=== PATIENT | male | born 1950 ===

== ENCOUNTER 2018-11-28 09:00 | Outpatient (CLI) | payer OTHER ==
[~2018-11-28 09:00] MED LIST: CORGARD40 MG; DIOVAN40 MG; LYRICA50 MG PO; VASOTEC20 M1
== END 2018-11-28 09:15 | disposition home or self-care (01) ==
LOC: SONOGRAMA 09:00
DX: M75.41 Impingement syndrome of right shoulder (principal)

== ENCOUNTER 2022-10-12 10:06 | Outpatient (CLI) | payer OTHER ==
[~2022-10-12 10:06] MED LIST changes: +DICLOFENAC SOD100 MG PO
== END 2022-10-12 10:16 | disposition home or self-care (01) ==
LOC: RAD 10:06
PROVIDERS: ATTEND Physical Medicine & Rehabilitation
DX: M77.8 Other enthesopathies, not elsewhere classified (principal); M75.41 Impingement syndrome of right shoulder; M17.9 Osteoarthritis of knee, unspecified

== ENCOUNTER 2023-09-18 13:26 | Outpatient (CLI) | payer OTHER | END 2023-09-18 13:33 | disposition home or self-care (01) | LOC: RAD 13:26 | PROVIDERS: ATTEND Physical Medicine & Rehabilitation | DX: M25.571 Pain in right ankle and joints of right foot (principal); M17.11 Unilateral primary osteoarthritis, right knee | CPT/HCPCS: 73721 ==

== ENCOUNTER 2024-09-25 11:19 | Outpatient (CLI) | payer OTHER | END 2024-09-25 11:23 | disposition home or self-care (01) | LOC: MRI 11:19 | PROVIDERS: ATTEND Physical Medicine & Rehabilitation | DX: S83.200A Bucket-handle tear of unspecified meniscus, current injury, right knee, initial encounter (principal) | CPT/HCPCS: 73721 ==